=== PATIENT | male | born 1995 | race Caucasian/White ===

== ENCOUNTER 2022-06-11 12:05 | Emergency (ER) | payer OTHER ==
[2022-06-11 12:12] VITALS: BP 161/79
--- NOTE | 2022-06-11 12:50 | XRAY Report ---
PROCEDURE: Wrist 4 View RT INDICATIONS: Trauma TECHNIQUE: 4 views of the wrist were acquired. COMPARISON: 05/30/2022 FINDINGS: Bones: No displaced fracture is identified. Carpal bones are normally aligned. The fifth metacarpal i s slightly deformed. Soft tissues: No suspicious calcifications. IMPRESSION: There is no displaced fracture apparent on radiography. There is slight deformity of the fifth metacarpal, of uncertain chronicity. Consider CT or MRI to further evaluate if there is high co ncern for occult injury. Reviewed by: Miky Orellana MD on 06/11/2022 12:48 PM PDT Approved by: Miky Orellana MD on 06/11/2022 12:48 PM PDT Station ID: [id number]
--- NOTE | 2022-06-11 13:30 | ED Physician Documentation ---
PD HPI UPPER EXT INJURY - Stated complaint Stated Complaint: RT WRIST PX - Chief complaint Chief Complaint: Trauma Ext - History obtained from History obtained from: Patient - History of Present Illness Location: Right, Wrist, Hand Pain level max: 6 Pain level now: 2 Improved by: Rest Worsened by: Moving Associated symptoms: No: Weakness, Numbness, Tingling, Swelling Contributing factors: No: Anticoagulated - Additonal information Additional information: 26-year-old male presents to the emergency department with right hand and wrist pain. This is been ongoing for about the past 10 days. He was seen here previously and had negative x-rays. He has been using the Velcro wrist brace. States that he is still having pain in the hand, especially with gripping tightly or if somebody squeezes his hand. He reportedly punched an arcade machine about 10 to 12 days ago. States no real pain with palpation. No numbness or tingling. No swelling. He is right-handed. Review of Systems Constitutional: denies: Fever, Chills Skin: denies: Rash Neurologic: denies: Head injury PD PAST MEDICAL HISTORY - Past Medical History Past Medical History: No - Past Surgical History Past Surgical History: No - Present Medications Home Medications: Ambulatory Orders Medication Instructions Recorded Confirmed No Known Home Medications 05/30/22 06/11/22 - Allergies Allergies/Adverse Reactions: Allergies Allergy/AdvReac Type Severity Reaction Status Date / Time No Known Drug Allergies Allergy Verified 06/11/22 12:11 - Living Situation Living Arrangement: reports: At home - Social History Does the pt have substance abuse?: No PD ED PE NORMAL - Vitals Vital signs reviewed: Yes - General General: Alert and oriented X 3, No acute distress - Derm Derm: Warm and dry - Extremities Extremities: Other (R hand - No tenderness over the wrist, scaphoid, metacarp als. No swelling. No deformity. Neurovascular intact. Normal examination of the hand.) - Neuro Neuro: Alert and oriented X 3 Results - Vitals Vitals: Vital Signs - 24 hr 06/11/22 12:06 Temperature 36.3 C L Heart Rate 78 Respiratory 16 Rate Blood Pressure 161/79 H O2 Saturation 99 Oxygen O2 Source Room air - Rads (name of study) Right hand x-ray Radiology: Final report received, EMP read contemporaneously, See rad report PD MEDICAL DECISION MAKING - ED course Complexity details: reviewed old records, reviewed results, considered differential, d/w patient ED course: 26-year-old male with continued right hand pain after punching a machine about 12 days ago. No acute findings on x-ray. No tenderness on exam. Appears to be soft tissue mainly with use of the hand. We will continue supportive care and have him follow-up with his doctor. There is no tenderness over the fifth metacarpal with the possible slight deformity on x-ray. Patient counseled regarding signs and symptoms for which I believe and urgent re-evaluation would be necessary. Patient with good understanding of and agreement to plan and is comfortable going home at this time This document was made in part using voice recognition software. While efforts are made to proofread this document, sound alike and grammatical errors may occur. Departure - Departure Disposition: 01 Home, Self Care Clinical Impression: Sprain of right hand Qualifiers: Encounter type: initial encounter Qualified Code(s): S63.91XA - Sprain of unspecified part of right wrist and hand, initial encounter Condition: Good Instructions: ED Sprain Hand Follow-Up: MASSIEL Flores [Provider Group] - Within 1 week Comments: Your x-ray does not show any acute fractures. Continue to use the brace as needed. Follow-up with your doctor for further care. Return if you worsen
== END 2022-06-11 13:53 | disposition home or self-care (01) ==
LOC: ED 12:05
DX: S63.91XA Sprain of unspecified part of right wrist and hand, initial encounter (principal); X58.XXXA Exposure to other specified factors, initial encounter
CPT/HCPCS: 99282; 99283

== ENCOUNTER 2022-06-25 16:06 | Emergency (ER) | payer OTHER ==
[2022-06-25 16:21] VITALS: BP 153/79
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
--- NOTE | 2022-06-25 17:32 | XRAY Report ---
PROCEDURE: Hand 3 View RT INDICATIONS: Hand and wrist injury TECHNIQUE: 3 views of the hand(s) acquired. COMPARISON: None FINDINGS: Bones: No fractures or dislocations. No suspicious bony lesions. Soft tissues: No suspicious soft tissue calcifications. IMPRESSION: Normal right hand Reviewed by: Travis Phan on 06/25/2022 5:31 PM [facility] Approved by: Travis Phan on 06/25/2022 5:31 PM [facility] Station ID: [id number]
--- NOTE | 2022-06-25 17:34 | XRAY Report ---
PROCEDURE: Wrist 4 View RT INDICATIONS: Hand and wrist injury TECHNIQUE: 4 views of the wrist were acquired. COMPARISON: None FINDINGS: Bones: No fractures or dislocations. No suspicious bony lesions. Scaphoid view: Normal Soft tissues: No suspicious soft tissue calcifications. IMPRESSION: Normal right wrist. Reviewed by: Travis Phan on 06/25/2022 5:32 PM [facility] Approved by: Travis Phan on 06/25/2022 5:32 PM [facility] Station ID: [id number]
== END 2022-06-25 17:59 | disposition home or self-care (01) ==
LOC: ED 16:06
DX: S63.501A Unspecified sprain of right wrist, initial encounter (principal); W22.8XXA Striking against or struck by other objects, initial encounter; X58.XXXA Exposure to other specified factors, initial encounter
CPT/HCPCS: 99283

== ENCOUNTER 2022-07-19 09:42 | Outpatient (CLI) | payer OTHER ==
--- NOTE | 2022-07-19 13:49 | MRI Report ---
PROCEDURE: WRIST WO - RT INDICATIONS: WRIST AND HAND PAIN TECHNIQUE: Noncontrast coronal proton density fast spin echo and T2 fast spin echo with fat saturation; coronal 3-D gradient echo, axial T1 spin echo and T2 fast spin echo with fat saturation, sagittal T1 spin ech o through the wrist. COMPARISON: Wrist radiograph dated 06/25/2022 and 06/11/2020 to. FINDINGS: Image quality: Excellent. Bones and cartilage: The carpal bones are normally aligned. No bone marrow contusions or fractures. No evidence for avascular necrosis. Overlying cartilage surfaces appear normal. Carpal ligaments: The scapholunate and lunotriquetral ligaments appear intact. In the absence of in tra-articular contrast, the extrinsic carpal ligaments are not well identified. On sagittal images, the pisohamate ligament appears intact. Triangular fibrocartilage complex: The triangular fibrocartilage appears intact. The adjacent menis nova homolog appears normal in the absence of intra-articular contrast. The extensor carpi ulnaris te ndon is mildly thickened with subtle intrasubstance T2 hyperintense signal. Tendons and soft tissues: The carpal tunnel structures appear normal, including the median nerve. T he ulnar nerve appears normal within Guyon's canal. All six extensor tendon compartments demonstrate normal morphology, without pathologic tendon sheath fluid. No soft tissue ganglion cysts. IMPRESSION: 1. Finding is concerning for mild tendinosis and low-grade intrasubstance partial thickness tear invo lving the extensor carpi ulnaris tendon at the level of ulnar styloid. No other tendon signal abnorma lity is seen. 2. Intrinsic and extrinsic wrist ligaments are grossly intact. 3. Triangular fibrocartilage complex is intact. 4. No marrow signal abnormality. No fracture or dislocation. No evidence of avascular necrosis. Reviewed by: Raudel Powell MD on 07/19/2022 1:48 PM PST Approved by: Raudel Powell MD on 07/19/2022 1:48 PM PST Station ID: [id number]
--- NOTE | 2022-07-19 13:51 | MRI Report ---
PROCEDURE: HAND WO - RT INDICATIONS: WRIST AND HAND PAIN TECHNIQUE: Noncontrast coronal T1 spin echo and T2 fast spin echo with fat saturation, axial proton density fast spin echo and T2 fast spin echo with fat saturation, sagittal T1 spin echo and STIR through the hand and fingers. COMPARISON: Right hand radiograph dated 06/25/2022. FINDINGS: Image quality: Excellent. Bones: The bones are normally aligned, without marrow contusions or fractures. No intra-osseous les ions. Interphalangeal joint(s): The accessory and proper collateral ligaments appear intact. The volar pl ate demonstrates normal morphology. The extensor central slips appear intact on sagittal images. Metacarpophalangeal joint(s): The accessory and proper collateral ligaments appear intact, as well a s the volar plate and adjacent deep transverse metacarpal ligaments. The sagittal bands of the exten sor guillen appear normal. Extensor apparatus: There is suggestion of mildly thickened extensor carpi ulnaris tendon at the leve l of ulnar styloid and proximal carpal row with subtle intrasubstance T2 hyperintense signal. The fanny tral slips insert normally on the middle phalangeal base. The conjoint and terminal tendons insert n ormally on the distal phalangeal bases. Rest of the more proximal portions of the extensor tendons al so appear normal. Flexor apparatus: The flexor digitorum superficialis and profundus tendons both appear intact. All annular and cruciform pulleys appear intact, without adjacent soft tissue edema. Soft tissues: Visualized muscles demonstrate normal bulk and internal signal. No intramuscular mass es identified. No ganglion cysts. IMPRESSION: 1. No marrow signal abnormality. No fracture or dislocation. No suspicious bony lesions. 2. Suggestion of tendinosis and low-grade intrasubstance partial thickness tear involving extensor ca rpi ulnaris tendon at the level of ulnar styloid and proximal carpal row. 3. Rest of the tendons and ligaments of right hand are grossly intact. Reviewed by: Raudel Powell MD on 07/19/2022 1:50 PM PST Approved by: Raudel Powell MD on 07/19/2022 1:50 PM PST Station ID: [id number]
== END 2022-07-19 09:43 | disposition home or self-care (01) ==
LOC: DI 09:42
DX: M25.531 Pain in right wrist (principal); M25.541 Pain in joints of right hand

== ENCOUNTER 2023-04-30 08:00 | Outpatient (CLI) | payer OTHER ==
[2023-04-30 21:36] LABS: CHLAMYDIA TRACHOMATIS DNA NEGATIVE (NEGATIVE); NEISSERIA GONORRHOEAE DNA NEGATIVE (NEGATIVE); TRICHOMONAS VAGINALIS DNA NEGATIVE (NEGATIVE)
[2023-05-02 06:08] LABS: HIV SCREEN 4TH GENERATION Non Reactive (Non Reactive)
[2023-05-02 09:09] LABS: HCV AB Non Reactive (Non Reactive)
[2023-05-03 02:08] LABS: RPR Non Reactive (Non Reactive)
== END 2023-04-30 23:59 | disposition home or self-care (01) ==
LOC: LAB.N 08:00
PROVIDERS: ATTEND Nurse Practitioner
DX: Z11.3 Encounter for screening for infections with a predominantly sexual mode of transmission (principal)
CPT/HCPCS: 36415; 86592; 86695; 86696; 86803; 87389; 87491; 87591; 87661

== ENCOUNTER 2023-11-11 23:55 | Outpatient (CLI) | payer OTHER | END 2023-11-11 23:59 | disposition critical access hospital (66) | LOC: EMS 23:55 | DX: S61.432A Puncture wound without foreign body of left hand, initial encounter (principal); W32.0XXA Accidental handgun discharge, initial encounter; Y92.009 Unspecified place in unspecified non-institutional (private) residence as the place of occurrence of the external cause | CPT/HCPCS: A0425; A0427 ==

== ENCOUNTER 2023-11-12 00:11 | Emergency (ER) | payer OTHER ==
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
[2023-11-12] MEDS: lidocaine 1% 20 ML MDV SUBQ ONE (00:46)
[2023-11-12] MEDS ORDERED: ceFAZolin 1 GM VIAL ONE (01:10)
[2023-11-12] MEDS: ceFAZolin 1 GM in SODIUM CHLORIDE 0.9% MINIBAG 100 ML IV STA (01:12)
[2023-11-12] MEDS: KETOROLAC 15 MG/ML VIAL IVP STA (01:13)
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
[2023-11-12] MEDS ORDERED: TRANEXAMIC ACID 1,000 MG/10 ML VIAL ONE (02:05)
[2023-11-12] MEDS: TRANEXAMIC ACID 1,000 MG in SODIUM CHLORIDE 0.9% 100ML 100 ML IV STA (02:08)
[2023-11-12] MEDS: HYDROmorphone 1 MG/ML CARPUJECT IVP STA (02:09)
[2023-11-12 04:28] VITALS: BP 136/66; O2SAT 99
== END 2023-11-12 04:23 | disposition home or self-care (01) ==
LOC: EDBD → EDUNIT# → ED 00:11
DX: S62.327A Displaced fracture of shaft of fifth metacarpal bone, left hand, initial encounter for closed fracture (principal); S61.412A Laceration without foreign body of left hand, initial encounter; X58.XXXA Exposure to other specified factors, initial encounter; F17.200 Nicotine dependence, unspecified, uncomplicated
CPT/HCPCS: 73130; 96365; 96375; 99284; 99285; J1170

== ENCOUNTER 2023-11-23 14:45 | Outpatient (CLI) | payer OTHER ==
[2023-11-23 23:16] LABS: CHLAMYDIA TRACHOMATIS DNA NEGATIVE (NEGATIVE); NEISSERIA GONORRHOEAE DNA NEGATIVE (NEGATIVE); TRICHOMONAS VAGINALIS DNA NEGATIVE (NEGATIVE)
[2023-11-24 05:12] LABS: RPR Non Reactive (Non Reactive)
[2023-11-25 01:08] LABS: HIV SCREEN 4TH GENERATION Non Reactive (Non Reactive)
== END 2023-11-23 15:00 | disposition home or self-care (01) ==
LOC: LAB.N 14:45
PROVIDERS: ATTEND Registered Nurse
DX: Z11.3 Encounter for screening for infections with a predominantly sexual mode of transmission (principal)
CPT/HCPCS: 36415; 86592; 87389; 87491; 87591; 87661